=== PATIENT | female | born 1970 | race Caucasian/White ===

== ENCOUNTER 2016-10-22 20:07 | Emergency (ER) | payer SELFPAY ==
[2016-10-22 20:23] LABS: Bilirubin Negative (Negative); Blood, Urine Trace (Negative); Glucose, Urine (Dipstick) Negative (Negative); Leukocyte Small (Negative); Nitrite Negative (Negative); Protein, Urine (Dipstick) 30 mg/dL (Neg-Trace); Urobilinogen 0.2 mg/dL (0.2-1.0); pH, Urine 5.5 (5.0-9.0)
[2016-10-22 20:34] LABS: Clarity Hazy (Clear)
[2016-10-22 20:36] LABS: Bacteria/HPF Rare-Few HPF (None Seen); RBC/HPF 0-3 HPF (0-3); Specific Gravity, Urine 1.028 (1.002-1.036); Squamous Epithelial 0-3 HPF (0-3)
[2016-10-22 20:38] LABS: Pregnancy Test - Urine (BHCG) Negative (NEGATIVE); Pregu Control Background? CLEAR/WHITE (CLR/WHITE); Pregu Control Bar Appear? YES (CONTROL BAR); Specific Gravity 1.028 (1.002-1.036)
[2016-10-22] MEDS ORDERED: Cipro 250 MG TAB ONE (20:49)
== END 2016-10-22 20:56 | disposition home or self-care (01) ==
LOC: NAV ERS 20:07
DX: N39.0 Urinary tract infection, site not specified (principal)
CPT/HCPCS: 81003; 81015; 81025; 87086; 99283